=== PATIENT | male | born 1935 | race Caucasian/White ===

== ENCOUNTER → 2016-08-13 | Outpatient (CLI) | payer MEDICARE, OTHER | END | disposition home or self-care (01) | LOC: RAD.S 13:19 | DX: R22.1 Localized swelling, mass and lump, neck (principal) ==

== ENCOUNTER 2016-10-14 01:26 | Emergency (ER) | payer MEDICARE, OTHER | END 2016-10-14 03:00 | disposition home or self-care (01) | DX: F41.1 Generalized anxiety disorder (principal); R23.2 Flushing; I10 Essential (primary) hypertension; Z85.46 Personal history of malignant neoplasm of prostate; Z88.2 Allergy status to sulfonamides; Z79.899 Other long term (current) drug therapy; Z79.01 Long term (current) use of anticoagulants ==